=== PATIENT | female | born 1995 | race American Indian/Alaskan Native ===

== ENCOUNTER 2019-11-23 11:13 | Inpatient (IN) | payer MEDICAID ==
[2019-11-23] MEDS ORDERED: LACTATED RINGERS 500 ML IV ONE (11:35)
[2019-11-23] MEDS ORDERED: ONDANSETRON 4 MG/2 ML INJ IV PRN (12:01)
[2019-11-23] MEDS ORDERED: TERBUTALINE 1 MG/1 ML INJ SUB-Q PRN (12:01)
[2019-11-23] MEDS ORDERED: ePHEDrine SULFATE 50 MG/1 ML INJ IV PRN ×2 (12:01→16:13)
[2019-11-23] MEDS ORDERED: BUTORPHANOL 2 MG/1 ML INJ IV PRN (12:01)
[2019-11-23] MEDS ORDERED: fentaNYL 100 MCG/2 ML INJ IV PRN (12:01)
[2019-11-23] MEDS ORDERED: MINERAL OIL 30 ML ORAL LIQD PO PRN (12:01)
[2019-11-23] MEDS ORDERED: TERBUTALINE 1 MG/1 ML INJ IVP PRN (12:01)
--- NOTE | 2019-11-23 12:11 | History and Physical Report ---
History of Present Illness Date of examination: 11/23/19 Date of admission: 11/23/2019 Chief complaint: Spontaneous Rupture of Membranes History of present illness: 24yo G1 at 38+2/7 weeks by LNMP /with second trimester US presents for SROM 24 ours ago. noCTX, no VB, decreased FM PNC at [facility] Past History Past Surgical History: no surgical history Family/Genetic History: diabetes, heart disease, cancer (brease cancer) Social history: no significant social history, single - Obstetrical History Expected Date of Delivery: 12/04/19 Actual Gestation: 38 Week(s) 3 Day(s) : 1 Medications and Allergies Allergies Allergy/AdvReac Type Severity Reaction Status Date / Time No Known Allergies Allergy Verified 11/23/19 11:38 Home Medications Medication Instructions Recorded Confirmed Last Taken Type Ondansetron [Zofran] 4 mg PO Q6HR PRN #24 tablet 06/12/14 Unknown Rx Sulfamethoxazole/Trimethoprim 1 each PO BID #14 tablet 06/12/14 Unknown Rx [Bactrim Ds] Active Meds: Active Medications Butorphanol Tartrate (Stadol) 1 mg IV Q2H PRN PRN Reason: Labor Pain Ephedrine Sulfate (Ephedrine Sulfate) 10 mg IV Q2M PRN PRN Reason: Hypotension Fentanyl (Sublimaze) 100 mcg IV Q2H PRN PRN Reason: Labor Pain Oxytocin/Sodium Chloride (Pitocin/Ns 20 Unit/1000ml Drip) 20 units in 1,000 mls @ 125 mls/hr IV DIRECT AVERY Oxytocin/Sodium Chloride (Pitocin/Ns 30 Unit/500ml) 30 units in 500 mls @ 1 mls/hr IV TITR AVERY; Protocol Oxytocin/Sodium Chloride (Pitocin/Ns 30 Unit/500ml) 30 units in 500 mls @ 0 mls/hr IV TITR AVERY; Protocol Lactated Ringer's (Lactated Ringers) 1,000 mls @ 125 mls/hr IV DIRECT AVERY Ampicillin Sodium (Ampicillin/Ns 1 Gm/50 Ml) 1 gm in 50 mls @ 100 mls/hr IV Q4H AVERY; Protocol Lidocaine (Xylocaine 2%) 20 ml INFILTRATI ONCE ONE Stop: 11/23/19 12:02 Mineral Oil (Mineral Oil) 30 ml PO QHS PRN PRN Reason: Constipation Ondansetron HCl (Zofran) 4 mg IV Q8H PRN PRN Reason: Nausea And Vomiting Terbutaline Sulfate (Brethine) 0.25 mg SUB-Q ONCE PRN PRN Reason: Hyperstimulation/Hypertonicity Terbutaline Sulfate (Brethine) 0.25 mg IVP ONCE PRN PRN Reason: Hyperstimulation/Hypertonicity Review of Systems All systems: negative (SROM) - Vital Signs Vital signs: Vital Signs Pulse Pulse Ox 127 H 97 11/23/19 11:57 11/23/19 11:57 Temp Pulse Resp BP Pulse Ox 127 H 130/83 97 11/23/19 12:02 11/23/19 11:58 11/23/19 12:02 - Physical Exam Breasts: Positive: normal Cardiovascular: Regular rate Lungs: Positive: Clear to auscultation Abdomen: Positive: normal appearance Anus/Rectum: Positive: normal perianal skin Extremities: Positive: normal Deep Tendon Reflex Grade: Normal +2 - Obstetrical FHR: auscultation normal, category 1 Uterine Contraction Monitor Mode: External Cervical Dilatation: 3 Cervical Effacement Percentage: 60 station: -3 Uterine Contraction Pattern: Irregular Uterine Contraction Intensity: Mild Results All other labs normal. Assessment and Plan PPROM at term Plan: admit abx oxytocin per protocol CFM Maternal/ well being reassuring overall Eric Stein MD
[2019-11-23] MEDS ORDERED: LIDOCAINE (2%) 20 MG/1 ML VIAL 20 ML MDV INFILTRATI ONE (12:30)
[2019-11-23] MEDS ORDERED: LACTATED RINGERS 1,000 ML IV SCH ×2 (13:00→19:00)
[2019-11-23] MEDS ORDERED: OXYTOCIN 20 UNIT/1000ML DRIP 20 UNITS/1,000 ML BAG IV SCH ×3 (13:00→21:00)
[2019-11-23] MEDS ORDERED: OXYTOCIN DRIP 30 UNITS/500 ML BAG IV SCH (13:00)
[2019-11-23] MEDS: OXYTOCIN DRIP 30 UNITS/500 ML BAG IV SCH ×2 (13:25→13:33)
[2019-11-23 13:27] LABS: Hematocrit 38.5 % (30.3-42.9); Mean Corpuscular HGB Conc 34 % (30-34); Mean Corpuscular Volume 97 fl (79-97); Platelet Count 279 K/mm3 (140-440); Red Blood Count 3.97 M/mm3 (3.65-5.03); Red Cell Distribution Width 13.1 % (13.2-15.2)
[2019-11-23] MEDS ORDERED: AMPICILLIN/NS 1 GM/50 ML 1 GM/50 ML BAG IV SCH (13:30)
[2019-11-23 13:32] LABS: Bacteria,Urine 1+ /HPF (Negative); Bilirubin,Urine NEG (Negative); Blood,Urine MOD (Negative); Color,Urine Yellow (Yellow); Hyaline Casts,Urine 3 /LPF; Mucus,Urine FEW /HPF; WBC,Urine > 182.0 /HPF (0.0-6.0)
[2019-11-23] MEDS: AMPICILLIN/NS 1 GM/50 ML 1 GM/50 ML BAG IV SCH ×2 (14:30→18:39)
--- NOTE | 2019-11-23 14:46 | Progress Note ---
Assessment and Plan PPROM Plan: oxytocin abx CFM Maternal/ status reassuring overall Eric Stein MD Subjective - Subjective Date of service: 11/23/19 Interval history: Oxytocin at 2mu/min PAtient feeling irregular contractions +ve LOF, +ve GFM Objective - Vital Signs Vital Signs: Vital Signs - 12hr 11/23/19 11/23/19 11/23/19 11:57 11:58 12:02 Temperature Pulse Rate 127 H 127 H 127 H Blood Pressure 130/83 O2 Sat by Pulse 97 97 Oximetry 11/23/19 11/23/19 11/23/19 12:07 12:12 12:17 Temperature Pulse Rate 131 H 129 H 140 H Blood Pressure O2 Sat by Pulse 96 98 96 Oximetry 11/23/19 11/23/19 11/23/19 12:22 12:27 12:41 Temperature Pulse Rate 125 H 122 H 134 H Blood Pressure 134/72 O2 Sat by Pulse 98 97 Oximetry 11/23/19 11/23/19 11/23/19 12:42 12:43 12:48 Temperature 98.8 F Pulse Rate 130 H 129 H 119 H Blood Pressure O2 Sat by Pulse 97 97 Oximetry 11/23/19 11/23/19 11/23/19 12:53 12:58 13:03 Temperature Pulse Rate 113 H 120 H 118 H Blood Pressure O2 Sat by Pulse 96 98 96 Oximetry 11/23/19 14:27 Temperature Pulse Rate 115 H Blood Pressure 137/66 O2 Sat by Pulse Oximetry - Exam Breasts: deferred Cardiovascular: Regular rate Lungs: Clear to auscultation Abdomen: Present: normal appearance Uterus: Present: normal, fundal height above umbilicus (FH40cm) FHR: category 1 Uterine Contraction Monitor Mode: External Cervical Dilatation: 3 Cervical Effacement Percentage: 80 station: -2 +ve 1cm caput Uterine Contraction Pattern: Irregular Extremities: normal Deep Tendon Reflex Grade: Normal +2 - Labs Labs: Abnormal Labs 11/23/19 11/23/19 Unknown Unknown WBC 14.4 H MCH 33 H RDW 13.1 L Urine WBC (Auto) > 182.0 H U Epithel Cells (Auto) 15.0 H Laboratory Results - last 24 hr 11/23/19 11/23/19 Unknown Unknown WBC 14.4 H RBC 3.97 Hgb 13.0 Hct 38.5 MCV 97 MCH 33 H MCHC 34 RDW 13.1 L Plt Count 279 Urine Color Yellow Urine Turbidity Cloudy Urine pH 6.0 Ur Specific [place] 1.015 Urine Protein 30 mg/dl Urine Glucose (UA) Neg Urine Ketones 20 Urine Blood Mod Urine Nitrite Neg Urine Bilirubin Neg Urine Urobilinogen 2.0 Ur Leukocyte Esterase Mod Urine WBC (Auto) > 182.0 H Urine RBC (Auto) 35.0 U Epithel Cells (Auto) 15.0 H Urine Bacteria (Auto) 1+ Hyaline Casts 3 Urine Mucus Few Urine Yeast (Budding) 2+
[2019-11-23] MEDS ORDERED: DEXMEDETOMIDINE 200 MCG/2 ML VIAL IV ONE (15:47)
[2019-11-23] MEDS ORDERED: fentaNYL-BUPIV 2 MCG/ML-0.125% 200 MCG/100 ML BAG EPIDURAL ONE (15:52)
[2019-11-23] MEDS ORDERED: NALOXONE 2 MG/2 ML INJ IV PRN (16:13)
--- NOTE | 2019-11-23 16:13 | Anesthesia Consultation ---
Anesthesia Consult and Med Hx Date of service: 11/23/19 - Airway Anesthetic Teeth Evaluation: Good ROM Head & Neck: Adequate Mental/Hyoid Distance: Adequate Mallampati Class: Class II Intubation Access Assessment: Good - Pulmonary Exam CTA: Yes - Cardiac Exam Cardiac Exam: RRR - Pre-Operative Health Status ASA Pre-Surgery Classification: ASA2, Emergency Proposed Anesthetic Plan: Epidural - Pulmonary Hx Asthma: No - Cardiovascular System Hx Hypertension: No - Central Nervous System Hx Seizures: No Hx Psychiatric Problems: No - Endocrine Hx Renal Disease: No Hx Hypothyroidism: No Hx Hyperthyroidism: No - Hematic Hx Anemia: No Hx Sickle Cell Disease: No - Other Systems Hx Alcohol Use: No
--- NOTE | 2019-11-23 16:15 | Progress Note ---
Labor Epidural - Labor Epidural Start Time: 15:54 Stop Time: 16:02 Performed by:: TASHI CROUCH Procedure: Patient is requesting a laboring epidural for laboring pain. Patient IDed, H&P reviewed, all questions and concerns were answered, and consent was signed. Timeout was performed at bedside. Patient in sitting position. Sterile prep and drape was performed. 3 ml of 1% lidocaine skin wheal at L 3- L 4. 18-gauge Touhy epidural needle was advanced to loss of resistance with air technique. Negative CSF negative blood. Epidural catheter advanced to 15 centimeters. Negative aspiration negative test dose. Sterile dressing applied. Patient tolerated procedure.
[2019-11-23] MEDS ORDERED: fentaNYL-BUPIV 2 MCG/ML-0.125% 200 MCG/100 ML BAG EPIDURAL SCH (17:00)
[2019-11-23] MEDS ORDERED: ACETAMINOPHEN 325 MG TAB PO ONE (18:36)
--- NOTE | 2019-11-23 18:47 | Progress Note ---
Assessment and Plan PROM at term IUPC and FSE placed tylenol [id number] dose, monitor maternal tachycardia closely afebrile,continue antibiotics continue oxytocin per protocol Maternal/ well being reassuring overall Eric Stein MD Subjective - Subjective Date of service: 11/23/19 Interval history: +ve variable contractions, late component after placement of epidural FHT 150 baseline, moderate variability, +ve variables to 80-90 bpm for one to two minutes with return to baseline. +ve accelerations Patient placed on left lateral with O2 per face mask Oxytocin at 2mu/min Linda: Q2 minutes Objective - Vital Signs Vital Signs: Vital Signs - 12hr 11/23/19 11/23/19 11/23/19 11:57 11:58 12:02 Temperature Pulse Rate 127 H 127 H 127 H Blood Pressure 130/83 O2 Sat by Pulse 97 97 Oximetry 11/23/19 11/23/19 11/23/19 12:07 12:12 12:17 Temperature Pulse Rate 131 H 129 H 140 H Blood Pressure O2 Sat by Pulse 96 98 96 Oximetry 11/23/19 11/23/19 11/23/19 12:22 12:27 12:41 Temperature Pulse Rate 125 H 122 H 134 H Blood Pressure 134/72 O2 Sat by Pulse 98 97 Oximetry 11/23/19 11/23/19 11/23/19 12:42 12:43 12:48 Temperature 98.8 F Pulse Rate 130 H 129 H 119 H Blood Pressure O2 Sat by Pulse 97 97 Oximetry 11/23/19 11/23/19 11/23/19 12:53 12:58 13:03 Temperature Pulse Rate 113 H 120 H 118 H Blood Pressure O2 Sat by Pulse 96 98 96 Oximetry 11/23/19 11/23/19 11/23/19 14:27 14:40 14:57 Temperature 98.8 F Pulse Rate 115 H 112 H Blood Pressure 137/66 143/69 O2 Sat by Pulse Oximetry 11/23/19 11/23/19 11/23/19 15:24 15:27 15:57 Temperature 98.8 F Pulse Rate 120 H 122 H Blood Pressure 132/66 144/67 O2 Sat by Pulse Oximetry 11/23/19 11/23/19 11/23/19 16:00 16:01 16:03 Temperature Pulse Rate 116 H 122 H Blood Pressure 134/74 138/79 O2 Sat by Pulse 92 0 L Oximetry 11/23/19 11/23/19 11/23/19 16:05 16:07 16:09 Temperature Pulse Rate 117 H 127 H 129 H Blood Pressure 123/69 120/59 113/62 O2 Sat by Pulse 100 Oximetry 11/23/19 11/23/19 11/23/19 16:10 16:11 16:13 Temperature Pulse Rate 120 H 131 H 131 H Blood Pressure 112/59 109/55 O2 Sat by Pulse 99 Oximetry 11/23/19 11/23/19 11/23/19 16:15 16:17 16:19 Temperature Pulse Rate 127 H 122 H 127 H Blood Pressure 102/54 97/52 111/53 O2 Sat by Pulse 97 Oximetry 11/23/19 11/23/19 11/23/19 16:20 16:21 16:25 Temperature Pulse Rate 127 H 131 H 132 H Blood Pressure 105/54 O2 Sat by Pulse 97 98 Oximetry 11/23/19 11/23/19 11/23/19 16:28 16:30 16:32 Temperature Pulse Rate 129 H 108 H 105 H Blood Pressure 111/55 123/59 O2 Sat by Pulse 98 Oximetry 11/23/19 11/23/19 11/23/19 16:35 16:36 16:40 Temperature Pulse Rate 103 H 115 H 117 H Blood Pressure 136/71 O2 Sat by Pulse 99 98 Oximetry 11/23/19 11/23/19 11/23/19 16:42 16:45 16:46 Temperature Pulse Rate 114 H 105 H 122 H Blood Pressure 125/59 119/64 O2 Sat by Pulse 99 Oximetry 11/23/19 11/23/19 11/23/19 16:50 16:51 16:55 Temperature Pulse Rate 124 H 121 H 106 H Blood Pressure 107/56 150/69 O2 Sat by Pulse 100 100 Oximetry 11/23/19 11/23/19 11/23/19 17:00 17:02 17:05 Temperature Pulse Rate 129 H 113 H 131 H Blood Pressure 143/72 O2 Sat by Pulse 100 100 Oximetry 11/23/19 11/23/19 11/23/19 17:06 17:10 17:11 Temperature Pulse Rate 109 H 123 H 129 H Blood Pressure 145/65 120/58 O2 Sat by Pulse 100 Oximetry 11/23/19 11/23/19 11/23/19 17:15 17:16 17:20 Temperature Pulse Rate 122 H 121 H 108 H Blood Pressure 133/58 O2 Sat by Pulse 100 100 Oximetry 11/23/19 11/23/19 11/23/19 17:23 17:25 17:26 Temperature Pulse Rate 114 H 124 H 121 H Blood Pressure 145/68 146/67 O2 Sat by Pulse 100 Oximetry 11/23/19 11/23/19 11/23/19 17:30 17:31 17:35 Temperature Pulse Rate 120 H 114 H 121 H Blood Pressure 152/70 O2 Sat by Pulse 100 100 Oximetry 11/23/19 11/23/19 11/23/19 17:36 17:40 17:41 Temperature Pulse Rate 105 H 118 H 114 H Blood Pressure 148/68 151/67 O2 Sat by Pulse 100 Oximetry 11/23/19 11/23/19 11/23/19 17:45 17:46 17:50 Temperature Pulse Rate 107 H 114 H 133 H Blood Pressure 149/66 O2 Sat by Pulse 100 100 Oximetry 11/23/19 11/23/19 11/23/19 17:53 17:55 18:00 Temperature 98.7 F Pulse Rate 116 H 128 H 124 H Blood Pressure 133/58 O2 Sat by Pulse 100 100 Oximetry 11/23/19 11/23/19 11/23/19 18:05 18:10 18:15 Temperature Pulse Rate 121 H 129 H 118 H Blood Pressure O2 Sat by Pulse 100 100 100 Oximetry 11/23/19 11/23/19 11/23/19 18:20 18:25 18:30 Temperature Pulse Rate 106 H 123 H 125 H Blood Pressure 138/50 O2 Sat by Pulse 100 100 100 Oximetry 11/23/19 11/23/19 18:35 18:40 Temperature Pulse Rate 114 H 110 H Blood Pressure O2 Sat by Pulse 100 100 Oximetry - Exam Breasts: normal Cardiovascular: Regular rate Lungs: Clear to auscultation FHR: category 2 Uterine Contraction Monitor Mode: Internal Cervical Dilatation: 3 Cervical Effacement Percentage: 80 station: -2 Uterine Contraction Frequency (min): 2 Uterine Contraction Duration: 1 minute Uterine Contraction Pattern: Irregular - Labs Labs: Abnormal Labs 11/23/19 11/23/19 Unknown Unknown WBC 14.4 H MCH 33 H RDW 13.1 L Urine WBC (Auto) > 182.0 H U Epithel Cells (Auto) 15.0 H Laboratory Results - last 24 hr 11/23/19 11/23/19 11/23/19 13:49 Unknown Unknown WBC 14.4 H RBC 3.97 Hgb 13.0 Hct 38.5 MCV 97 MCH 33 H MCHC 34 RDW 13.1 L Plt Count 279 Urine Color Yellow Urine Turbidity Cloudy Urine pH 6.0 Ur Specific [place] 1.015 Urine Protein 30 mg/dl Urine Glucose (UA) Neg Urine Ketones 20 Urine Blood Mod Urine Nitrite Neg Urine Bilirubin Neg Urine Urobilinogen 2.0 Ur Leukocyte Esterase Mod Urine WBC (Auto) > 182.0 H Urine RBC (Auto) 35.0 U Epithel Cells (Auto) 15.0 H Urine Bacteria (Auto) 1+ Hyaline Casts 3 Urine Mucus Few Urine Yeast (Budding) 2+ Blood Type O POSITIVE Antibody Screen Negative
[2019-11-23] MEDS ORDERED: BICITRA ORAL LIQD 30ML ONE (18:54)
[2019-11-23] MEDS ORDERED: BICITRA ORAL LIQD 30ML PO ONE (18:54)
[2019-11-23] MEDS ORDERED: METOCLOPRAMIDE 10 MG/2 ML INJ IV ONE (18:54)
[2019-11-23] MEDS ORDERED: METOCLOPRAMIDE 10 MG/2 ML INJ ONE (18:54)
[2019-11-23] MEDS ORDERED: FAMOTIDINE 20 MG/2 ML INJ IV ONE ×2 (18:54)
[2019-11-23] MEDS ORDERED: ceFAZolin/Water 2 GM/20 ML 2 GM/20 ML SYRINGE IV ONE (18:54)
--- NOTE | 2019-11-23 18:56 | Progress Note ---
Subjective - Subjective Date of service: 11/23/19 Interval history: +persitent late variables plan for primary c/section infomred consent obtained NPO to OR for procedure Eric Stein MD Objective - Vital Signs Vital Signs: Vital Signs - 12hr 11/23/19 11/23/19 11/23/19 11:57 11:58 12:02 Temperature Pulse Rate 127 H 127 H 127 H Blood Pressure 130/83 O2 Sat by Pulse 97 97 Oximetry 11/23/19 11/23/19 11/23/19 12:07 12:12 12:17 Temperature Pulse Rate 131 H 129 H 140 H Blood Pressure O2 Sat by Pulse 96 98 96 Oximetry 11/23/19 11/23/19 11/23/19 12:22 12:27 12:41 Temperature Pulse Rate 125 H 122 H 134 H Blood Pressure 134/72 O2 Sat by Pulse 98 97 Oximetry 11/23/19 11/23/19 11/23/19 12:42 12:43 12:48 Temperature 98.8 F Pulse Rate 130 H 129 H 119 H Blood Pressure O2 Sat by Pulse 97 97 Oximetry 11/23/19 11/23/19 11/23/19 12:53 12:58 13:03 Temperature Pulse Rate 113 H 120 H 118 H Blood Pressure O2 Sat by Pulse 96 98 96 Oximetry 11/23/19 11/23/19 11/23/19 14:27 14:40 14:57 Temperature 98.8 F Pulse Rate 115 H 112 H Blood Pressure 137/66 143/69 O2 Sat by Pulse Oximetry 11/23/19 11/23/19 11/23/19 15:24 15:27 15:57 Temperature 98.8 F Pulse Rate 120 H 122 H Blood Pressure 132/66 144/67 O2 Sat by Pulse Oximetry 11/23/19 11/23/19 11/23/19 16:00 16:01 16:03 Temperature Pulse Rate 116 H 122 H Blood Pressure 134/74 138/79 O2 Sat by Pulse 92 0 L Oximetry 11/23/19 11/23/19 11/23/19 16:05 16:07 16:09 Temperature Pulse Rate 117 H 127 H 129 H Blood Pressure 123/69 120/59 113/62 O2 Sat by Pulse 100 Oximetry 11/23/19 11/23/19 11/23/19 16:10 16:11 16:13 Temperature Pulse Rate 120 H 131 H 131 H Blood Pressure 112/59 109/55 O2 Sat by Pulse 99 Oximetry 11/23/19 11/23/19 11/23/19 16:15 16:17 16:19 Temperature Pulse Rate 127 H 122 H 127 H Blood Pressure 102/54 97/52 111/53 O2 Sat by Pulse 97 Oximetry 11/23/19 11/23/19 11/23/19 16:20 16:21 16:25 Temperature Pulse Rate 127 H 131 H 132 H Blood Pressure 105/54 O2 Sat by Pulse 97 98 Oximetry 11/23/19 11/23/19 11/23/19 16:28 16:30 16:32 Temperature Pulse Rate 129 H 108 H 105 H Blood Pressure 111/55 123/59 O2 Sat by Pulse 98 Oximetry 11/23/19 11/23/19 11/23/19 16:35 16:36 16:40 Temperature Pulse Rate 103 H 115 H 117 H Blood Pressure 136/71 O2 Sat by Pulse 99 98 Oximetry 11/23/19 11/23/19 11/23/19 16:42 16:45 16:46 Temperature Pulse Rate 114 H 105 H 122 H Blood Pressure 125/59 119/64 O2 Sat by Pulse 99 Oximetry 11/23/19 11/23/19 11/23/19 16:50 16:51 16:55 Temperature Pulse Rate 124 H 121 H 106 H Blood Pressure 107/56 150/69 O2 Sat by Pulse 100 100 Oximetry 11/23/19 11/23/19 11/23/19 17:00 17:02 17:05 Temperature Pulse Rate 129 H 113 H 131 H Blood Pressure 143/72 O2 Sat by Pulse 100 100 Oximetry 11/23/19 11/23/19 11/23/19 17:06 17:10 17:11 Temperature Pulse Rate 109 H 123 H 129 H Blood Pressure 145/65 120/58 O2 Sat by Pulse 100 Oximetry 11/23/19 11/23/19 11/23/19 17:15 17:16 17:20 Temperature Pulse Rate 122 H 121 H 108 H Blood Pressure 133/58 O2 Sat by Pulse 100 100 Oximetry 11/23/19 11/23/19 11/23/19 17:23 17:25 17:26 Temperature Pulse Rate 114 H 124 H 121 H Blood Pressure 145/68 146/67 O2 Sat by Pulse 100 Oximetry 11/23/19 11/23/19 11/23/19 17:30 17:31 17:35 Temperature Pulse Rate 120 H 114 H 121 H Blood Pressure 152/70 O2 Sat by Pulse 100 100 Oximetry 11/23/19 11/23/19 11/23/19 17:36 17:40 17:41 Temperature Pulse Rate 105 H 118 H 114 H Blood Pressure 148/68 151/67 O2 Sat by Pulse 100 Oximetry 11/23/19 11/23/19 11/23/19 17:45 17:46 17:50 Temperature Pulse Rate 107 H 114 H 133 H Blood Pressure 149/66 O2 Sat by Pulse 100 100 Oximetry 11/23/19 11/23/19 11/23/19 17:53 17:55 18:00 Temperature 98.7 F Pulse Rate 116 H 128 H 124 H Blood Pressure 133/58 O2 Sat by Pulse 100 100 Oximetry 11/23/19 11/23/19 11/23/19 18:05 18:10 18:15 Temperature Pulse Rate 121 H 129 H 118 H Blood Pressure O2 Sat by Pulse 100 100 100 Oximetry 11/23/19 11/23/19 11/23/19 18:20 18:25 18:30 Temperature Pulse Rate 106 H 123 H 125 H Blood Pressure 138/50 O2 Sat by Pulse 100 100 100 Oximetry 11/23/19 11/23/19 11/23/19 18:35 18:40 18:45 Temperature Pulse Rate 114 H 110 H 117 H Blood Pressure O2 Sat by Pulse 100 100 100 Oximetry 11/23/19 11/23/19 18:49 18:50 Temperature Pulse Rate 132 H 122 H Blood Pressure O2 Sat by Pulse 78 L 100 Oximetry - Labs Labs: Abnormal Labs 11/23/19 11/23/19 Unknown Unknown WBC 14.4 H MCH 33 H RDW 13.1 L Urine WBC (Auto) > 182.0 H U Epithel Cells (Auto) 15.0 H Laboratory Results - last 24 hr 11/23/19 11/23/19 11/23/19 13:49 Unknown Unknown WBC 14.4 H RBC 3.97 Hgb 13.0 Hct 38.5 MCV 97 MCH 33 H MCHC 34 RDW 13.1 L Plt Count 279 Urine Color Yellow Urine Turbidity Cloudy Urine pH 6.0 Ur Specific [place] 1.015 Urine Protein 30 mg/dl Urine Glucose (UA) Neg Urine Ketones 20 Urine Blood Mod Urine Nitrite Neg Urine Bilirubin Neg Urine Urobilinogen 2.0 Ur Leukocyte Esterase Mod Urine WBC (Auto) > 182.0 H Urine RBC (Auto) 35.0 U Epithel Cells (Auto) 15.0 H Urine Bacteria (Auto) 1+ Hyaline Casts 3 Urine Mucus Few Urine Yeast (Budding) 2+ Blood Type O POSITIVE Antibody Screen Negative
[2019-11-23] MEDS ORDERED: BUPIVACAINE/PF (0.25%) 2.5 MG/ML 10 ML VIAL INFILTRATI ONE (19:02)
[2019-11-23] MEDS ORDERED: ceFAZolin/STERILE WATER 2 GM/20 ML SYRINGE IV ONE (19:09)
[2019-11-23] MEDS ORDERED: METHYLERGONOVINE MALEATE 0.2 MG/ML VIAL IM ONE (19:15)
[2019-11-23] MEDS ORDERED: WATER FOR IRRIG STERILE 1,500 ML BOTTLE IR ONE (19:25)
[2019-11-23] MEDS ORDERED: SODIUM CHLORIDE 0.9% IRR 1,500 ML BOTTLE IR ONE (19:25)
[2019-11-23] MEDS ORDERED: ONDANSETRON 4 MG/2 ML INJ ONE (19:40)
[2019-11-23] MEDS ORDERED: dexAMETHasone 20 MG/5 ML VIAL ONE (19:40)
[2019-11-23] MEDS ORDERED: PHENYLEPHRINE/NS 1,000 MCG/10 ML SYRINGE (OR USE) IV ONE (19:40)
[2019-11-23] MEDS ORDERED: diphenhydrAMINE 50 MG/ML VIAL ONE (19:40)
[2019-11-23] MEDS ORDERED: KETOROLAC 30 MG/1 ML INJ ONE (19:40)
[2019-11-23] MEDS ORDERED: ACETAMINOPHEN 325 MG TAB PO PRN (20:14)
[2019-11-23] MEDS ORDERED: LANOLIN/ZINC/DIMETHICONE (LANSINOH) 7 GM TP PRN (20:14)
[2019-11-23] MEDS ORDERED: IBUPROFEN 800 MG TAB PO PRN (20:14)
[2019-11-23] MEDS ORDERED: WITCH HAZEL/ GLYCERIN PAD TP PRN (20:14)
[2019-11-23] MEDS ORDERED: SIMETHICONE 80 MG CHEW TAB PO PRN (20:14)
[2019-11-23] MEDS ORDERED: NALOXONE 0.4 MG/1 ML INJ IV PRN (20:14)
[2019-11-23 20:16] LABS: Cord Venous Blood PO2 22.1; Cord Venous Oxyhemoglobin 48.9
--- NOTE | 2019-11-23 20:17 | Procedure Note ---
OB Delivery Note - Delivery Date of Delivery: 11/23/19 Surgeon: TIMI LAMBERT Estimated blood loss: other (800ml) - Section Preop diagnosis: arrest of dilation, nonreassuring FHR tracing Postop diagnosis: same section procedure: primary low transverse Disposition: PACU Complications: other (chrioamnionitis) Narrative: Preoperative diagnosis: NRFHT,arrest of dilatation, PROM at term Postoperative diagnosis: same,suspected chorioamnionitis Procedure: primary low transverse section via pfannenstiel incision Surgeon : Dr Timi Lambert Assist: scrub Anesthesia: epidural Complications: none Drains: welsh to gravity EBL 800ml IV fluids: 1400ml Urine output: 100ml Findings:normal uterus, tubes and ovaries bilaterally. Viable female,weight 2847gms, 8,9. Procedure: informed consent taken in 2009 with family present. All questions and concerns addressed. R/B/C reviewed. She was taken to the OR where excellent epidural anesthesia was verified. She was placed in the dorsal supine position with a leftward tilt. She was prepped and draped in a sterile fashion. A time out was verified. An Suzanne clamp was used to assure adequate analgesia. A Pfannenstiel skin incision was made, taken down through the underlying fascia sharply and extended laterally bluntly. The superior and inferior aspect of the fascial incision was grasped with Sabino clamps and the rectus muscles dissected off sharply. The abdomen was entered bluntly in the midline and extended laterally and inferiorly bluntly with good visualization of the underlying structures. The vesicouterine peritoneum was grasped with Nigerian forceps and incised sharply with Metzenbaum scissors and extended laterally sharply. The uterine incision was made sharply with a scalpel, taken down to the amnion and extended inferiorly and superiorly bluntly. The bladder blade removed. Baby delivered atraumatically in cephalic presentation, no nuchal cord. Vacuum appliedx1 with pop off. Baby in direct OP presentation, delivered atrauamtically with flexion and rotation of the vertex. Spontaneous cry at delivery.The cord was clamped and cut and baby handed to waiting NICU staff. Cord blood and gases obtained. An intact placenta with three vessel cord delivered manually. The uterus cleared of all clots and debris. The uterus was exteriorized and the uterine incision closed with 2 layers of 0-Vicryl. The abdomen was irrigated with warm normal saline and the uterus placed back in the abdomen. A second look at the uterine incision assured excellent hemostasis. The peritoneum closed with 3-0 vicryl. The rectus muscles approximated with 3-0 vicryl with good hemostasis. The fascia closed with 0-Vicryl in the usual fashion, and the underlying structures closed with interrupted suture of O-Vicryl. The skin closed with jarrett and a pressure dressing applied. Mom and baby stable to . Patient hemodynamically stable in PACU. EBL 800ml. Antibiotics in PACU. Placenta sent to pathology for evaluation. Cheryl DENNY - A at 1 minute: 8 at 5 minutes: 9 Infant Gender: Female (weight 2847gms)
[2019-11-23 20:25] LABS: Cord Venous Oxygen Content 10.4
--- NOTE | 2019-11-23 20:29 | Anesthesia Day of Surgery ---
Anesthesia Day of Surgery - Day of Surgery Patient Examined: Yes Patient H&P Reviewed: Yes Patient is NPO: Yes
--- NOTE | 2019-11-23 20:29 | Post Anesthesia Evaluation ---
- Post Anesthesia Evaluation Patient Participated: Yes Airway Patent: Yes Stable Respiratory Function: Yes Nausea/Vomiting: No Temp > 96.8F: Yes Pain Manageable: Yes Adequeate Hydration: Yes Anesthesia Complications: No Block Receding Appropriately: Yes Patient on Ventilator: No
[2019-11-23] MEDS: MORPHINE 4 MG/1 ML INJ IV PRN (21:18)
[2019-11-23] MEDS: CLINDAMYCIN 300 MG/50 mL 300 MG/50 ML BAG IV SCH (22:38)
[2019-11-24] MEDS: MORPHINE 4 MG/1 ML INJ IV PRN ×2 (00:37→07:41)
[2019-11-24] MEDS: ceFAZolin/NS 1 GM/50 ML 1 GM/50 ML BAG IV SCH ×3 (00:39→17:00)
[2019-11-24] MEDS: CLINDAMYCIN 300 MG/50 mL 300 MG/50 ML BAG IV SCH ×3 (07:40→23:36)
[2019-11-24 08:22] LABS: Hematocrit 30.4 % (30.3-42.9); Hemoglobin 10.6 gm/dl (10.1-14.3)
--- NOTE | 2019-11-24 10:26 | Progress Note ---
Assessment and Plan - Patient Problems (1) S/P primary low transverse Current Visit: Yes Status: Acute Plan to address problem: POD 1 - stable Continue routine postop orders Ambulation encouraged, as tolerated Abdominal binder ordered Anticipate discharge in 24 to 48 hours (2) Single live Current Visit: Yes Status: Acute (3) Tachycardia Current Visit: Yes Status: Acute Plan to address problem: Currently asymptomatic On Ancef and Cleocin for chorioamnionitis Subjective - Subjective Date of service: 11/24/19 Principal diagnosis: POD #1; s/p Primary LTCS Interval history: see H&P, OB Progress Notes and OB Delivery Procedure Note Patient reports: appetite normal, voiding normally, pain well controlled, ambulating normally, no dizzy ambulation, no flatus, no bowel movement : doing well (breast and bottle feeding) Objective - Vital Signs Latest vital signs: Vital Signs Temp Pulse Resp BP BP Pulse Ox 11/24/19 08:23 98.5 F 124 H 28 H 122/66 98 11/24/19 04:10 98.7 F 117 H 18 124/68 11/24/19 00:00 98.6 F 120 H 18 135/78 11/23/19 22:21 99.1 F 120 H 20 128/55 97 11/23/19 21:25 99.3 F 140 H 20 128/39 98 11/23/19 21:18 18 11/23/19 21:10 17 124/68 99 11/23/19 20:55 115 H 20 124/58 98 11/23/19 20:40 116 H 18 124/58 99 11/23/19 20:35 115 H 20 119/49 99 11/23/19 20:30 127 H 18 111/74 98 11/23/19 20:25 120 H 20 113/75 99 11/23/19 20:20 98.0 F 115 H 20 103/50 100 11/23/19 18:57 139 H 108/55 11/23/19 18:55 153 H 100 11/23/19 18:50 122 H 100 11/23/19 18:49 132 H 78 L 11/23/19 18:45 117 H 100 11/23/19 18:40 110 H 100 11/23/19 18:35 114 H 100 11/23/19 18:30 98.2 F 125 H 100 11/23/19 18:25 123 H 138/50 100 11/23/19 18:20 106 H 100 11/23/19 18:15 118 H 100 11/23/19 18:10 129 H 100 11/23/19 18:05 121 H 100 11/23/19 18:00 98.7 F 124 H 100 11/23/19 17:55 128 H 100 11/23/19 17:53 116 H 133/58 11/23/19 17:50 133 H 100 11/23/19 17:46 114 H 149/66 11/23/19 17:45 107 H 100 11/23/19 17:41 114 H 151/67 11/23/19 17:40 118 H 100 11/23/19 17:36 105 H 148/68 11/23/19 17:35 121 H 100 11/23/19 17:31 114 H 152/70 11/23/19 17:30 120 H 100 11/23/19 17:26 121 H 146/67 11/23/19 17:25 124 H 100 11/23/19 17:23 114 H 145/68 11/23/19 17:20 108 H 100 11/23/19 17:16 121 H 133/58 11/23/19 17:15 122 H 100 11/23/19 17:11 129 H 120/58 11/23/19 17:10 123 H 100 11/23/19 17:06 109 H 145/65 11/23/19 17:05 131 H 100 11/23/19 17:02 113 H 143/72 11/23/19 17:00 129 H 100 11/23/19 16:55 106 H 150/69 100 11/23/19 16:51 121 H 107/56 11/23/19 16:50 124 H 100 11/23/19 16:46 122 H 119/64 11/23/19 16:45 105 H 99 11/23/19 16:42 114 H 125/59 11/23/19 16:40 117 H 98 11/23/19 16:36 115 H 136/71 11/23/19 16:35 103 H 99 11/23/19 16:32 105 H 123/59 11/23/19 16:30 108 H 98 11/23/19 16:28 129 H 111/55 11/23/19 16:25 132 H 98 03/01/20 16:21 131 H 105/54 11/23/19 16:20 127 H 97 11/23/19 16:19 127 H 111/53 11/23/19 16:17 122 H 97/52 11/23/19 16:15 127 H 102/54 97 11/23/19 16:13 131 H 109/55 11/23/19 16:11 131 H 112/59 11/23/19 16:10 120 H 99 11/23/19 16:09 129 H 113/62 11/23/19 16:07 127 H 120/59 11/23/19 16:05 117 H 123/69 100 11/23/19 16:03 122 H 138/79 0 L 11/23/19 16:01 116 H 134/74 11/23/19 16:00 92 11/23/19 15:57 122 H 144/67 11/23/19 15:27 120 H 132/66 11/23/19 15:24 98.8 F 11/23/19 14:57 112 H 143/69 11/23/19 14:40 98.8 F 11/23/19 14:27 115 H 137/66 11/23/19 13:03 118 H 96 11/23/19 12:58 120 H 98 11/23/19 12:53 113 H 96 11/23/19 12:48 119 H 97 11/23/19 12:43 129 H 97 11/23/19 12:42 98.8 F 130 H 11/23/19 12:41 134 H 134/72 11/23/19 12:27 122 H 97 11/23/19 12:22 125 H 98 11/23/19 12:17 140 H 96 11/23/19 12:12 129 H 98 11/23/19 12:07 131 H 96 11/23/19 12:02 127 H 97 11/23/19 11:58 127 H 130/83 11/23/19 11:57 127 H 97 Intake and Output 11/23/19 11/24/19 11/24/19 23:59 07:59 15:59 Intake Total 1850 300 Output Total 250 1000 900 Balance 1600 -700 -900 Intake: IV 1850 100 AMPICILLIN/NS 1 GM/50 ML 50 1 gm In 50 ml @ 100 mls/ hr IV Q4HR [facility] Rx#: [id number] ANCEF/NS 1 GM/50 ML 1 gm 50 In 50 ml @ 100 mls/hr IV Q8HR [facility] Rx#:[id number] CLEOCIN 300 MG/50 mL 300 50 mg In 50 ml @ 100 mls/hr IV Q8HR [facility] Rx#: [id number] Oral 200 Output: Urine 250 1000 900 Indwelling Catheter 1000 900 Other: Total, Intake Amount 200 Total, Output Amount 600 900 Estimated Blood Loss 800 - Exam Breasts: Present: normal Cardiovascular: Present: Regular rate Lungs: Present: Clear to auscultation Abdomen: Present: normal appearance, soft Vulva: both: normal Uterus: Present: normal, firm, fundal height at umbilicus Extremities: Present: other (trace) Incision: Present: normal, dry, intact, other Comments: small lochia - Labs Labs: Abnormal lab results 11/23/19 11/23/19 Range/Units Unknown Unknown WBC 14.4 H (4.5-11.0) K/mm3 MCH 33 H (28-32) pg RDW 13.1 L (13.2-15.2) % Urine WBC (Auto) > 182.0 H (0.0-6.0) /HPF U Epithel Cells (Auto) 15.0 H (0-13.0) /HPF
[2019-11-24] MEDS: HYDROcodone/ACETAMINOPHEN 5-325 MG TAB PO PRN ×2 (13:30→22:22)
[2019-11-25] MEDS: ceFAZolin/NS 1 GM/50 ML 1 GM/50 ML BAG IV SCH ×3 (01:48→17:37)
[2019-11-25] MEDS: MAGNESIUM HYDROXIDE (MOM) ORAL LIQD UDC PO PRN (03:36)
[2019-11-25] MEDS: CLINDAMYCIN 300 MG/50 mL 300 MG/50 ML BAG IV SCH ×3 (08:25→23:51)
--- NOTE | 2019-11-25 10:26 | Progress Note ---
Assessment and Plan - Patient Problems (1) S/P primary low transverse Current Visit: Yes Status: Acute Plan to address problem: Continue routine PP orders Anticipate d/c home tomorrow Keep incision site clean and dry (2) Anemia Current Visit: Yes Status: Acute Qualifiers: Anemia type: other cause Other causes of anemia: acute posthemorrhagic Qualified Code(s): D62 - Acute posthemorrhagic anemia Plan to address problem: Asymptomatic Increase iron rich foods into diet Continue daily oral iron supplementation as directed (3) Chorioamnionitis Current Visit: Yes Status: Acute Subjective - Subjective Date of service: 11/25/19 Principal diagnosis: POD #2; s/p Primary LTCS Interval history: See admission H & P; OB operative summary and PP progress notes Patient reports: appetite normal, voiding normally, pain well controlled (with medications), flatus, ambulating normally (within the room, will start to walk in hallways), no bowel movement Leming: doing well, bottle feeding (and ) Objective - Vital Signs Latest vital signs: Vital Signs Temp Pulse Resp BP BP Pulse Ox 11/25/19 07:45 98.6 F 108 H 18 138/77 95 11/24/19 23:23 97.7 F 125 H 20 129/67 97 11/24/19 22:22 20 11/24/19 20:52 98.8 F 116 H 18 121/77 100 11/24/19 16:23 97.7 F 123 H 24 120/60 96 11/24/19 11:42 98.3 F 110 H 24 129/71 99 Intake and Output 11/24/19 11/25/19 11/25/19 23:59 07:59 15:59 Intake Total 460 410 Output Total 300 Balance 160 410 Intake: IV 100 50 ANCEF/NS 1 GM/50 ML 1 gm 50 In 50 ml @ 100 mls/hr IV Q8HR [facility] Rx#:[id number] CLEOCIN 300 MG/50 mL 300 50 50 mg In 50 ml @ 100 mls/hr IV Q8HR [facility] Rx#: [id number] Oral 360 Intake, Free Water 360 Output: Urine 300 Void 300 Other: Total, Intake Amount 120 Total, Output Amount 300 # Voids Indwelling Catheter 1 Void 2 - Exam Breasts: Present: normal Cardiovascular: Present: Regular rate Lungs: Present: Normal air movement Abdomen: Present: tenderness Uterus: Present: firm, fundal height below umbilicus (U-2) Extremities: Present: edema (slight in BLE) Incision: Present: dry, intact (no signs of infection)
[2019-11-25] MEDS: HYDROcodone/ACETAMINOPHEN 5-325 MG TAB PO PRN ×2 (10:33→23:44)
--- NOTE | 2019-11-25 10:33 | Discharge Summary ---
Providers - Providers Date of Admission: 11/23/19 17:38 Date of discharge: 11/26/19 (1200) Attending physician: TIMI LAMBERT MD Primary care physician: TIMI LAMBERT MD Hospitalization Reason for admission: active labor, IUP at term Delivery: Procedure: primary low transverse Episiotomy: none Laceration: none Incision: dry, intact (jarrett intact, no signs of infection noted) Other procedures: none complications: other (Chorioamnionitis) Discharge diagnosis: IUP at term delivered [place] baby: female Hospital course: See admission H & P; OB operative summary and PP progress notes Condition at discharge: Stable Disposition: [place]- TO HOME OR SELFCARE - Discharge Diagnoses (1) S/P primary low transverse Status: Acute (2) Anemia Status: Acute Qualifiers: Anemia type: other cause Other causes of anemia: acute posthemorrhagic Qualified Code(s): D62 - Acute posthemorrhagic anemia (3) Chorioamnionitis Status: Acute Plan - Discharge Medications Prescriptions: Ferrous Sulfate [Feosol 325 MG tab] 325 mg PO QDAY 30 Days #30 tablet - Provider Discharge Summary Activity: routine, no sex for 6 weeks, no heavy lifting 4 weeks, no strenuous exercise Diet: other (Iron rich diet) Instructions: routine Additional instructions: [] Smoking cessation referral if applicable(refer to patient education folder for contact #) [] Refer to [facility] Booklet Call your doctor immediately for: * Fever > 100.5 * Heavy vaginal bleeding ( >1 pad per hour) * Severe persistent headache * Shortness of breath * Reddened, hot, painful area to leg or breast * Drainage or odor from incision. * Keep incision clean and dry at all times and follow doctor's instructions regarding bathing/showering - Follow up plan Follow up: TIMI LAMBERT MD [Primary Care Provider] - 7 Days Forms: [facility] Discharge Summary
[2019-11-25] MEDS: FERROUS SULFATE 325 MG TAB PO SCH (10:34)
[2019-11-26] MEDS: MAGNESIUM HYDROXIDE (MOM) ORAL LIQD UDC PO PRN (01:34)
[2019-11-26] MEDS: ceFAZolin/NS 1 GM/50 ML 1 GM/50 ML BAG IV SCH (01:35)
[2019-11-26] MEDS: HYDROcodone/ACETAMINOPHEN 5-325 MG TAB PO PRN (05:42)
[2019-11-26] MEDS: FERROUS SULFATE 325 MG TAB PO SCH (11:18)
[2019-11-26 15:45] VITALS: BP 129/81
== END 2019-11-26 14:50 | disposition home or self-care (01) | DRG 765 ==
LOC: TRG 11:13 → LD 12:44 → TRG 17:37 → LD 17:38 → OB 22:18
PROVIDERS: ADMIT Obstetrics & Gynecology; ATTEND Obstetrics & Gynecology
PROC: 10D00Z1 Extraction of Products of Conception, Low, Open Approach (ICD-10-PCS; principal; 2019-11-23)
PROC: 10H07YZ Insertion of Other Device into Products of Conception, Via Natural or Artificial Opening (ICD-10-PCS; 2019-11-23)
PROC: 10H073Z Insertion of Monitoring Electrode into Products of Conception, Via Natural or Artificial Opening (ICD-10-PCS; 2019-11-23)
DX: O41.1230 Chorioamnionitis, third trimester, not applicable or unspecified (principal); D62 Acute posthemorrhagic anemia; O76 Abnormality in fetal heart rate and rhythm complicating labor and delivery; O62.0 Primary inadequate contractions; O42.02 Full-term premature rupture of membranes, onset of labor within 24 hours of rupture; O99.03 Anemia complicating the puerperium; Z3A.38 38 weeks gestation of pregnancy; Z37.0 Single live birth; Z83.3 Family history of diabetes mellitus; Z82.49 Family history of ischemic heart disease and other diseases of the circulatory system; Z80.3 Family history of malignant neoplasm of breast
CPT/HCPCS: 36415; 81001; 82803; 85014; 85018; 85027; 86850; 86900; 86901; 88307; G0378; J0290; J0690; J1100; J1200; J1885; J2210; J2270; J2370; J2405; J2590; J2765; J3490; J7120